=== PATIENT | female | born 1940 | race Caucasian/White ===

== ENCOUNTER 2016-07-30 12:04 | Inpatient (IN) | payer MEDICARE ==
[~2016-07-30] VITALS: Ht 157.5 cm; Wt 53.1 kg
[2016-07-30] MEDS ORDERED: PARO10TA84 PO (12:20)
[2016-07-30] MEDS ORDERED: LEVO10VL IM (12:20)
[2016-07-30] MEDS ORDERED: SYNT100T PO (13:36)
[2016-07-30 15:19] VITALS: BP 124/76
[2016-07-30] MEDS ORDERED: MOM 30ML SUSPENSION UDC PO PRN (16:15)
[2016-07-30] MEDS ORDERED: ACETAMINOPHEN TAB 650MG DOSE (2X325MG) PO PRN (16:15)
[2016-07-30] MEDS ORDERED: MAALOX 30 ML SUSP *UDC PO PRN (16:15)
[2016-07-30] MEDS ORDERED: traZODone 50 MG TAB PO PRN (16:15)
[2016-07-31] MEDS ORDERED: LEVOTHYROXINE 0.1 MG TAB (100 MCG) PO SCH (06:00)
[2016-07-31 06:30] VITALS: BP 114/67
[2016-07-31] MEDS ORDERED: buPROPion **XL** TABLET 150MG (WELLBUTRIN XL) PO SCH (09:00)
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
[2016-07-31 18:00] VITALS: BP 109/56
[2016-08-01 05:19] VITALS: BP 126/67
--- NOTE | 2016-08-01 06:16 | HPE ---
DATE OF ADMISSION: 07/30/2016 Please refer to the psychiatric history and evaluation for further details on this admission. This examination and history is intended for medical issues which may need treatment, followup or consultation on this 75-year-old female that was transferred from [facility] after having had increasing depression with feelings of hopelessness. Inpatient admission was recommended. There were no beds at [facility] and the patient was transferred here. PRIMARY CARE PROVIDER: UYEN Liang ALLERGIES: - PENICILLIN SOCIAL HISTORY: She is . She does not smoke cigarettes. She does not use recreational drugs. PAST MEDICAL HISTORY: Hypothyroidism. PAST SURGICAL HISTORY: Nose surgery. HOME MEDICATIONS: - levothyroxine 100 mcg by mouth daily - paroxetine 10 mg by mouth daily REVIEW OF SYSTEMS: Ten systems review was done. The patient had no complaints other than feeling hopeless and helpless. No medical complaints. PHYSICAL EXAMINATION: 75-year-old cooperative female in no acute distress. Height 62 inches. Weight 53.1 kg. Body mass index (BMI) 21.4. Blood pressure 124/76. Pulse 74. Respirations 16. Temperature 98.8. Oxygen saturation 98% on room air. The patient is alert and oriented times three. Pupils equal and reactive to light. Extraocular movements intact. Cornea and sclera clear. Conjunctiva normal. No facial asymmetry. Pharynx, tongue and gums pink and moist. Tongue is midline. Neck is supple, without lymphadenopathy. No thyromegaly. No goiter. Central venous pressure is below the clavicle. Carotids 2+, without bruit. Chest clear to auscultation, without wheeze or retraction. Heart is regular. Without murmur or gallop. Abdomen benign. Bowel sounds positive. Genitourinary ()/Rectal: Not done. Extremities show equal strength, full range of motion. No cyanosis, clubbing or edema. Gait steady, short stanced gait, takes small steps. She had a workup for that with a MRI in 2016 to rule out multiple sclerosis. Peripheral pulses equal and palpable bilaterally. Skin is warm and dry. IMPRESSION AND PLAN: 1. Psychiatric. Plan per psychiatry. 2. History of hypothyroidism. Will check a thyroid profile. Continue levothyroxine 100 mcg by mouth daily. 3. Electrocardiogram (EKG) ordered.
--- NOTE | 2016-08-01 08:02 | IPN ---
DATE: 08/01/2016 TIME: Around 5:00 a.m. Around 5:00 a.m. a rapid response was called from inpatient mental health unit for Mrs. Clay. I arrived to the scene and personally examined the patient and later the patient was transferred to the progressive care unit (PCU) for monitoring. Please refer to my admission history and physical for details.
--- NOTE | 2016-08-02 16:55 | ECGEPIP ---
Stationary ECG Study [facility] Test Date: 2016-08-01 Pat Name: BRANDON GALARZA Department: [facility] Room: [place] [address] Gender: F Hub Associate: : 1940 Requested By: PIERRE CONNER Order Number: [id number] Reading MD: Segun Fontana Measurements Intervals [place] Rate: 63 P: 68 IL: 144 QRS: 68 QRSD: 92 T: 41 QT: 459 QTc: 472 Interpretive Statements SINUS RHYTHM Normal ECG. No prior ECG available for comparison at the time of interpretation. Electronically Signed On 08-02-2016 16:55:16 EDT by Segun Fontana
[2016-08-10] MEDS ORDERED: LIDO1OIN2 TOP (09:53)
== END 2016-08-01 05:30 | disposition short-term general hospital (02) | DRG 885 ==
LOC: EDBD → M ED 13:33 → M ED INP 13:53 → M PSY 15:13
PROVIDERS: ADMIT Psychiatry & Neurology Psychiatry; ATTEND Psychiatry & Neurology Psychiatry
DX: F33.9 Major depressive disorder, recurrent, unspecified (principal); E03.9 Hypothyroidism, unspecified; Z91.5 Personal history of self-harm; R26.89 Other abnormalities of gait and mobility; Z88.0 Allergy status to penicillin; R55 Syncope and collapse; I95.9 Hypotension, unspecified

== ENCOUNTER 2016-08-01 05:34 | Observation (INO) | payer MEDICARE ==
[2016-08-01] VITALS (7 sets, daily range): BP systolic 98–140; BP diastolic 56–72
[~2016-08-01 05:34] MED LIST: LEVO10VL IM; PARO10TA84 PO; SYNT100T PO
[2016-08-01] MEDS ORDERED: ONDANSETRON 4MG/2ML VIAL (J2405) IV PRN (06:00)
[2016-08-01 06:38] LABS: MEAN CORPUSCULAR HEMOGLOBIN 32.8 pg (27.0-33.0); MEAN CORPUSCULAR HGB CONC 33.9 g/dl (32.0-36.5); MEAN CORPUSCULAR VOLUME 96.6 fl (80.0-96.0); RED CELL DISTRIBUTION WIDTH 12.3 % (11.5-14.5); WHITE BLOOD COUNT 8.4 K/mm3 (4.0-10.0)
[2016-08-01] MEDS ORDERED: SODIUM CHLORIDE 0.9% 1000 ML IV ONE (07:00)
[2016-08-01 07:06] LABS: ALBUMIN 3.2 GM/DL (3.2-5.2); ALBUMIN/GLOBULIN RATIO 1.39 (1.00-1.93); ALKALINE PHOSPHATASE 73 U/L (45-117); ALT/SGPT 25 U/L (12-78); ANION GAP 6 MEQ/L (8-16); AST/SGOT 19 U/L (15-37); BILIRUBIN,TOTAL 1.7 MG/DL (0.2-1.0); BLOOD UREA NITROGEN 22 MG/DL (7-18); CALCIUM LEVEL 8.2 MG/DL (8.8-10.2); CARBON DIOXIDE LEVEL 30 MEQ/L (21-32); CHLORIDE LEVEL 106 MEQ/L (98-107); GLOMERULAR FILTRATION RATE > 60.0 (>39); GLUCOSE, FASTING 120 MG/DL (83-110); POTASSIUM SERUM 3.8 MEQ/L (3.5-5.1); SODIUM LEVEL 142 MEQ/L (136-145); T UPTAKE 19 % (30-39); THYROXINE (T4) 11.9 UG/DL (4.5-12.0); TOTAL PROTEIN 5.5 GM/DL (6.4-8.2)
[2016-08-01] MEDS: NS 1,000 ML IV SCH ×2 (08:16→15:54)
[2016-08-01] MEDS: LEVOTHYROXINE 0.1 MG TAB (100 MCG) PO SCH (08:17)
[2016-08-01] MEDS: HEPARIN SOD (PORCINE) 5000 UNITS/ML VIAL SC SCH ×3 (08:17→20:30)
--- NOTE | 2016-08-01 08:34 | HPE ---
DATE OF ADMISSION: 08/01/2016 CHIEF COMPLAINT: Near syncope. HISTORY OF PRESENT ILLNESS: The patient is a 75-year-old female with a past medical history significant for anxiety, depression, bipolar and suicidal ideation. The patient was initially admitted to the inpatient mental health unit since 07/30/2016 and the patient was started on some new medications, such as Wellbutrin. Around 5:00 a.m. on 08/01/2016 the patient had a near syncope episode. The patient stood up and tried to get out of bed and the patient started feeling weak and the staff was around and she was able to catch her and she did not have a fall; however, within a few seconds the patient was noted to have stiff upper extremities and her eyes started to roll backwards. Symptoms resolved spontaneously within a few seconds and rapid response was called and the hospital team arrived to the scene to evaluate the patient. The patient complained of generalized weakness. The patient was a little bit disoriented. She is not sure what happened, but the patient denies any loss of consciousness. Denies any associated symptoms. ALLERGIES: PENICILLIN (hives). PAST MEDICAL HISTORY: 1. Anxiety/depression. 2. Bipolar. 3. History of suicidal ideation. 4. Hypothyroidism. SOCIAL HISTORY: Denies tobacco use. Denies any alcohol use. Denies any recreational drug use. REVIEW OF SYSTEMS: GENERAL: Feels generalized weakness. No fever or chills. HEENT: No vision changes. No auditory changes. CARDIOVASCULAR: Denies any chest pain, palpitations. RESPIRATORY: No cough. No sputum production. No shortness of breath. GASTROINTESTINAL: No nausea, vomiting. No abdominal pain. No diarrhea. MUSCULOSKELETAL: No muscle pain or joint pain. NEUROLOGIC: No numbness or tingling. OBJECTIVE: VITAL SIGNS: Temperature is 97.8, pulse is 62, blood pressure supine is 128/88, blood pressure sitting is 119/57, standing is 98/59. Oxygen saturation is 98% on room air. GENERAL: Pale, fatigued. No sign of acute distress. The patient shows signs of mild disorientation. She knows that she is in the hospital. She knows her name and knows her birthday. HEENT: Normocephalic, atraumatic. Extraocular muscles intact. CARDIOVASCULAR: Positive systolic murmur. Positive S1, S2. Regular rate. LUNGS: Clear to auscultation bilaterally. ABDOMEN: Soft, nontender, nondistended. Bowel sounds present. No rebound. No guarding. EXTREMITIES: No edema. No sign of cyanosis. NEUROLOGIC: Sensation to fine touch is grossly intact. Muscle strength 5/5. LABORATORY DATA: No new laboratories available. ASSESSMENT AND PLAN: 1. Near syncope episode. The patient will be discharged from inpatient mental health unit. The patient will be admitted to the progressive care unit (PCU) under observation status. Rapid response was called and I arrived at the assessment and decided to send the patient for cardiac telemetry monitoring for 24 hours. The patient will have an EKG and laboratories. Her new psychiatric medication will be discontinued. Psychiatrist, Dr. Liu, will be consulted to assist the patient and control the depression and suicidal ideation. The patient will be on IV hydration for her orthostatic hypotension. 2. Hypothyroidism. The patient is on Synthroid. Follow with a TSH. 3. Anxiety/depression. We will defer the psychiatric medication to psychiatrist. 4. Suicide ideation. The patient will be on one-to-one sitter. 5. Deep vein thrombosis (DVT) prophylaxis. On heparin.
[2016-08-02 04:00] VITALS: BP 145/67
[2016-08-02] MEDS: NS 1,000 ML IV SCH (05:14)
[2016-08-02] MEDS: HEPARIN SOD (PORCINE) 5000 UNITS/ML VIAL SC SCH ×2 (05:14→14:21)
[2016-08-02] MEDS: LEVOTHYROXINE 0.1 MG TAB (100 MCG) PO SCH (05:14)
[2016-08-02 05:57] LABS: MEAN CORPUSCULAR HEMOGLOBIN 32.5 pg (27.0-33.0); MEAN CORPUSCULAR HGB CONC 33.5 g/dl (32.0-36.5); MEAN CORPUSCULAR VOLUME 97.2 fl (80.0-96.0); RED CELL DISTRIBUTION WIDTH 12.5 % (11.5-14.5)
[2016-08-02 06:12] LABS: ALBUMIN 2.8 GM/DL (3.2-5.2); ALKALINE PHOSPHATASE 76 U/L (45-117); ALT/SGPT 86 U/L (12-78); ANION GAP 7 MEQ/L (8-16); AST/SGOT 90 U/L (15-37); BILIRUBIN,TOTAL 0.9 MG/DL (0.2-1.0); BLOOD UREA NITROGEN 12 MG/DL (7-18); CALCIUM LEVEL 7.9 MG/DL (8.8-10.2); CARBON DIOXIDE LEVEL 26 MEQ/L (21-32); CHLORIDE LEVEL 112 MEQ/L (98-107); CREATININE FOR GFR 0.42 MG/DL (0.55-1.02); GLOMERULAR FILTRATION RATE > 60.0 (>39); GLUCOSE, FASTING 106 MG/DL (83-110); POTASSIUM SERUM 3.5 MEQ/L (3.5-5.1); SODIUM LEVEL 145 MEQ/L (136-145); TOTAL PROTEIN 5.6 GM/DL (6.4-8.2)
[2016-08-02 07:50] VITALS: BP 150/66
--- NOTE | 2016-08-02 10:17 | DS.PDOC ---
Discharge Summary General Date of Admission Aug 01, 2016 at 05:58 Date of Discharge 08/02/16 Discharge Summary PROCEDURES PERFORMED DURING STAY: [None]. DISCHARGE DIAGNOSES: 1. Orthostatic hypotension 2. Anxiety/depression 3. Bipolar disorder 4. Hypothyroidism CHIEF COMPLAINT: Near Syncope. HOSPITAL COURSE: 75 yo female admitted to medicine service from [facility] for near syncopal episode. Patient was admitted to telemetry, no events noted on telemetry. She was found to be borderline orthostatic, and responded well to IV fluids. Workup was otherwise unremarkable. DISCHARGE MEDICATIONS: Please see below. ALLERGIES: Please see below. PHYSICAL EXAMINATION ON DISCHARGE: VITAL SIGNS: Please see below. GENERAL: NAD, sitting comfortably in chair, very excitable HEENT: NC/AT, EOMI, PERRL NECK: supple CARDIOVASCULAR EXAMINATION: +S1S2, RRR RESPIRATORY EXAMINATION: CTA B/L ABDOMINAL EXAMINATION: soft, NT, +BS EXTREMITIES: no edema NEUROLOGICAL EXAMINATION: no gross focal deficits PSYCHIATRIC EXAMINATION: AAOx3, anxious/manic LABORATORY DATA: Please see below. ACTIVITY: [As tolerated]. DIET: regular diet DISCHARGE PLAN: Further evaluation as per psychiatry, likely discharge to [facility]. DISPOSITION: Pending further evaluation by psychiatry, likely discharge to [facility]. DISCHARGE INSTRUCTIONS: 1. Further directions as per psychiatry. ITEMS TO FOLLOWUP ON ON OUTPATIENT: 1. PCP in 3-5 days on discharge from [facility]. DISCHARGE CONDITION: [Stable]. TIME SPENT ON DISCHARGE: Greater than 30 minutes. Vital Signs/I&Os Vital Signs Date Time Temp Pulse Resp B/P Pulse Ox O2 Delivery O2 Flow Rate FiO2 08/02/16 07:50 98.0 64 20 150/66 99 Room Air I&O- Last 24 Hours up to 6 AM 08/02/16 06:00 Intake Total 2040 ml Output Total 1000 ml Balance 1040 ml Laboratory Data Labs 24H Laboratory Tests 2 08/02/16 05:13: Blood Urea Nitrogen 12, Creatinine 0.42L, Sodium Level 145, Potassium Level 3.5 , Chloride Level 112H, Carbon Dioxide Level 26, Calcium Level 7.9L, Aspartate Amino Transf (AST/SGOT) 90H, Alanine Aminotransferase (ALT/SGPT) 86H, Alkaline Phosphatase 76, Total Bilirubin 0.9, Total Protein 5.6L, Albumin 2.8L, Albumin/ Globulin Ratio 1.00, Anion Gap 7L, Glomerular Filtration Rate > 60.0 CBC/BMP Laboratory Tests 08/02/16 05:13 Calcium Level 7.9 L, Aspartate Amino Transf (AST/SGOT) 90 H, Alanine Aminotransferase (ALT/SGPT) 86 H, Alkaline Phosphatase 76, Total Bilirubin 0.9, Total Protein 5.6 L, Albumin 2.8 L, Red Blood Count 3.57 L, Mean Corpuscular Volume 97.2 H, Mean Corpuscular Hemoglobin 32.5, Mean Corpuscular Hemoglobin Concent 33.5, Red Cell Distribution Width 12.5 Discharge Medications Scheduled (Paroxetine) 10 Mg Tab 10 MG PO DAILY (Reported) Levothyroxine Sodium (Synthroid) 100 Mcg Tab 100 MCG PO DAILY (Reported) Allergies Coded Allergies: Penicillins (Verified Allergy, Intermediate, hives, 07/30/16) RONALDO HAMPTON MD Aug 02, 2016 10:17
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
[2016-08-10] MEDS ORDERED: LIDO1OIN2 TOP (09:53)
== END 2016-08-02 16:47 ==
LOC: EDBD 05:58 → INTOOBSV 05:58 → M PCU 05:58
PROVIDERS: ADMIT Internal Medicine; ATTEND Internal Medicine
DX: I95.9 Hypotension, unspecified (principal); R55 Syncope and collapse; R45.851 Suicidal ideations; F31.9 Bipolar disorder, unspecified; F41.9 Anxiety disorder, unspecified; E03.9 Hypothyroidism, unspecified; Z88.0 Allergy status to penicillin
CPT/HCPCS: 36415; 80053; 84436; 84443; 84479; 85027; G0378

== ENCOUNTER 2016-08-02 17:40 | Inpatient (IN) | payer MEDICARE ==
[2016-08-02 17:40] VITALS: BP 122/70
[2016-08-02] MEDS ORDERED: MOM 30ML SUSPENSION UDC PO PRN (19:15)
[2016-08-02] MEDS ORDERED: traZODone 50 MG TAB PO PRN (19:15)
[2016-08-02] MEDS ORDERED: MAALOX 30 ML SUSP *UDC PO PRN (19:15)
[2016-08-03] MEDS: LEVOTHYROXINE 0.1 MG TAB (100 MCG) PO SCH (05:54)
[2016-08-03 06:10] VITALS: BP 140/63
--- NOTE | 2016-08-03 09:06 | HPEPDOC ---
Medical History and Physical Date of Admission Aug 02, 2016 at 17:40 History and Physical PCP: Teri QIU ATTENDING: Dr. Segun Recio HPI: 75yoF admitted to [facility] for unspecified depressive disorder, admitted to medical floor with near syncopal episode related to orthostatic hypotension -08/02/16 being medically examined today. The patient denies any dizziness, lightheadedness or recurrent presyncopal symptoms. She is out of bed and ambulating about the floor and the lounge and has eaten breakfast. Denies any fevers, chills, weakness, fatigue, HARDEN, CP, SOB, cough, palpitations, abdominal pain, N/V/D or changes in bowel or bladder habits. PMHx: Orthostatic hypotension Depression Anxiety Bipolar disorder Hypothyroidism PSHX: Nasal surgery SOCHX: Resides in: [facility] Marital Status: Tobacco use: Denies ETOH: Denies Illicit Drugs: Denies IV Drug Use: Denies Tattoos done unprofessionally: Denies ROS: As noted in HPI, otherwise 11pt ROS of systems reviewed and unremarkable. PE: GEN: 75yoF, appears stated age. Well-nourished, well developed. No acute distress. Alert and oriented x 3. Pleasant, interactive. HEENT: Normocephalic, atraumatic. Pupils are equal, round, and reactive to light. Extraocular movements are intact. No nystagmus appreciated. Sclera are nonicteric. Conjunctiva without injection. Nose midline. Nasal turbinates without bogginess. EACs both patent BL. TMs both visualized and conte with good cone of light, no bulging or erythema. No facial asymmetry. Moist mucous membranes. Dentition fair. Pharynx pink and moist, no cobblestoning. Neck supple , trachea midline. No lymphadenopathy or thyromegaly appreciated. CHEST: Regular rate and rhythm, +S1, +S2 LUNGS: Clear to auscultation bilaterally. No wheezes, rales, or rhonchi. Breathing appears symmetric and easy. Patient is speaking in full sentences. No accessory muscle use. ABD: Round, soft, non-tender, non-distended. +Bowel sounds throughout. No rebound or guarding. No costovertebral angle tenderness. EXT: Pulses 2+ bilaterally dorsalis pedis and radial. No lower extremity edema appreciated. SKIN: [place], dry, warm. Capillary refill <2sec. No rashes. NEURO: Alert and oriented x 3. Cranial nerves III-XII are intact. No focal deficits appreciated. EK08/01/16 SINUS RHYTHM Normal ECG. No prior ECG available for comparison at the time of interpretation.. A&P: 75yoF admitted to [facility] for unspecified depressive disorder 1. Psych. Plan per Psychiatry. EKG on file. 2. Hypothyroidism. Continue supplement. TSH and free T4 within normal limits. 3. Orthostatic hypotension. Resolved status post IV fluids. 4. Follow up with PCP on discharge. 5. Elevated LFT. Recheck CMP in a.m. 6. Breonna AVINA present throughout exam. Vital Signs Vital Signs Label Value Date Time Patient Temperature 98.2 degrees F 08/03/16 0610 Temperature Source Temporal 08/03/16 0610 Pulse 88 08/03/16 0610 Respiratory Rate 18 bpm 08/03/16 0610 Blood Pressure Assessment 140/63 (88) 08/03/16 0610 Item Value Date Time Sodium Level 145 MEQ/L 08/02/16 0513 Potassium Level 3.5 MEQ/L 08/02/16 0513 Chloride Level 112 MEQ/L H 08/02/16 0513 Carbon Dioxide Level 26 MEQ/L 08/02/16 0513 Anion Gap 7 MEQ/L L 08/02/16 0513 Blood Urea Nitrogen 12 MG/DL 08/02/16 0513 Creatinine 0.42 MG/DL L 08/02/16 0513 Glomerular Filtration Rate > 60.0 08/02/16 0513 Fasting Glucose 106 MG/DL 08/02/16 0513 Calcium Level 7.9 MG/DL L 08/02/16 0513 Total Bilirubin 0.9 MG/DL 08/02/16 0513 Aspartate Amino Transf (AST/SGOT) 90 U/L H 08/02/16 0513 Alanine Aminotransferase (ALT/SGPT) 86 U/L H 08/02/16 0513 Alkaline Phosphatase 76 U/L 08/02/16 0513 Total Protein 5.6 GM/DL L 08/02/16 0513 Albumin 2.8 GM/DL L 08/02/16 0513 Albumin/Globulin Ratio 1.00 08/02/16 0513 White Blood Count 8.0 K/mm3 08/02/16 0513 Red Blood Count 3.57 M/mm3 L 08/02/16 0513 Hemoglobin 11.6 g/dl L 08/02/16 0513 Hematocrit 34.7 % L 08/02/16 0513 Mean Corpuscular Volume 97.2 fl H 08/02/16 0513 Mean Corpuscular Hemoglobin 32.5 pg 08/02/16 05 Mean Corpuscular Hemoglobin Concent 33.5 g/dl 08/02/16 05 Red Cell Distribution Width 12.5 % 08/02/16512 Platelet Count 163 k/mm3 08/02/16 0513 Laboratory Data Labs 24H Item Value Date Time Thyroid Stimulating Hormone (TSH) 0.482 uIU/ML 08/01/1615 Free Thyroxine Index 2.3 % 08/01/16614 Home Medications Scheduled (Paroxetine) 10 Mg Tab 10 MG PO DAILY Levothyroxine Sodium (Synthroid) 100 Mcg Tab 100 MCG PO DAILY Allergies Coded Allergies: Penicillins (Verified Allergy, Intermediate, hives, 07/30/16) Shagufta Stuart Aug 03, 2016 09:06
[2016-08-03] MEDS: SERTRALINE HCL 25 MG TABLET PO SCH (09:55)
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
[2016-08-03 18:01] VITALS: BP 127/70
[2016-08-04] MEDS: LEVOTHYROXINE 0.1 MG TAB (100 MCG) PO SCH (05:15)
[2016-08-04 06:34] VITALS: BP 122/63
[2016-08-04] MEDS: SERTRALINE HCL 25 MG TABLET PO SCH (08:12)
[2016-08-04] MEDS ORDERED: POTASSIUM CHLORIDE 10 MEQ SR TABLET PO ONE (13:15)
--- NOTE | 2016-08-04 17:45 | IPNPDOC ---
[facility] Progress Note Progress Note DATE OF SERVICE: 08/04/16 INTERVAL HISTORY: Medication Side effects: Reports no GI side effects from her antidepressant or other side effects. Behavior: He has been friendly and amenable and much less worried and anxious. She appears to be much less attention seeking today. Group Attendance: Regularly attending groups and enjoying the process Psychiatric Symptom change: Reports that her depression has improved greatly and that her anxiety has lessened to a much more manageable degree today. She states that she had a good night sleep last night due to the start of Zoloft. VITAL SIGNS: See below. NEW TEST RESULTS: See below CURRENT MEDICATIONS: See below. MENTAL STATUS EXAMINATION: General: Well dressed with good hygiene Speech: Spontaneous and fluid Thought processes: Linear and logical Thought content: Future orientated with less perseveration on on anxiety Abstract reasoning, and computation: Intact Description of associations: Intact Description of abnormal or psychotic thoughts:Denies any suicidal or homicidal ideation. Denies any auditory or visual hallucinations. Does not appear to be responding to internal stimuli. Does not appear to be endorsing any bizarre or paranoid ideation. Judgment: Fair Insight: Fair Orientation: Alert and orientated 3 Recent and remote memory: Intact Attention span and concentration: Intact Fund of knowledge: Adequate Mood: "Okay" Affect: Somewhat anxious DIAGNOSES: 1. Unspecified depressive disorder. 2. Unspecified anxiety disorder. ASSESSMENT: Improving, getting close to discharge MANAGEMENT PLAN: Medications: Continue sertraline 25 mg daily Psychotherapy: Encourage groups Social: Meeting tomorrow with for prospect of discharge Misc: None Disposition: The patient require further inpatient time in order to address her disposition needs. TIME SPENT: 25 minutes. Vital Signs Vital Signs Date Time Temp Pulse Resp B/P Pulse Ox O2 Delivery O2 Flow Rate FiO2 08/04/16 06:34 97.2 94 16 122/63 08/02/16 17:40 100 Room Air Laboratory Data 24H Labs Laboratory Tests 2 08/04/16 06:57: Blood Urea Nitrogen 12, Creatinine 0.60, Sodium Level 141, Potassium Level 3.2L , Chloride Level 106, Carbon Dioxide Level 30, Calcium Level 8.7L, Aspartate Amino Transf (AST/SGOT) 37, Alanine Aminotransferase (ALT/SGPT) 78, Alkaline Phosphatase 97, Total Bilirubin 1.6#H, Total Protein 6.8#, Albumin 3.3, Albumin/ Globulin Ratio 0.94L, Anion Gap 5L, Glomerular Filtration Rate > 60.0 CBC/BMP Laboratory Tests 08/04/16 06:57 Calcium Level 8.7 L, Aspartate Amino Transf (AST/SGOT) 37, Alanine Aminotransferase (ALT/SGPT) 78, Alkaline Phosphatase 97, Total Bilirubin 1.6 #H , Total Protein 6.8 #, Albumin 3.3 Current Medications Current Medications Acetaminophen (Tylenol Tab) 650 mg Q6HP PRN PO HEADACHE or DISCOMFORT; Start at 19:15; Stop 09/01/16 at 19:14 Al Hydrox/Mg Hydrox/Simethicone (Mylanta) 30 ml Q4HP PRN PO HEARTBURN/ INDIGESTION; Start 08/02/16 at 19:15; Stop 09/01/16 at 19:14 Levothyroxine Sodium (Synthroid) 0.1 mg DAILY@06 PO Last administered on 05:15; Start 08/03/16 at 06:00; Stop 09/02/16 at 05:59 Magnesium Hydroxide (Milk Of Magnesia) 30 ml DAILYPRN PRN PO CONSTIPATION; Start 08/02/16 at 19:15; Stop 09/01/16 at 19:14 Sertraline HCl (Zoloft) 25 mg QAM PO Last administered on 08/04/16 08:12; Start 08/03/16 at 09:00; Stop 09/02/16 at 08:59 Trazodone HCl (Desyrel) 50 mg QHSP PRN PO INSOMNIA; Start 08/02/16 at 19:15; Stop 09/01/16 at 19:14 Allergies Coded Allergies: Penicillins (Verified Allergy, Intermediate, hives, 07/30/16) GME ATTESTATION My preceptor for this patient encounter was physically present in the building during the encounter and was fully available. As needed, all aspects of the patient interview, examination, medical decision making process, and medical care plan development were reviewed and approved by the preceptor. Preceptor is aware and concurs with the plan as stated in the body of this note and will attest to such by his/her cosignature. DAVID BRASHER DO Aug 04, 2016 17:45
[2016-08-04 18:00] VITALS: BP 132/76
[2016-08-05] MEDS ORDERED: clonazePAM 0.5 MG TAB PO PRN (00:15)
[2016-08-05] MEDS: LEVOTHYROXINE 0.1 MG TAB (100 MCG) PO SCH (05:10)
[2016-08-05 06:13] VITALS: BP 120/76
[2016-08-05] MEDS: SERTRALINE HCL 25 MG TABLET PO SCH (08:08)
[2016-08-05] MEDS: clonazePAM 0.5 MG TAB PO SCH (12:36)
--- NOTE | 2016-08-05 12:48 | IPNPDOC ---
[facility] Progress Note Progress Note DATE OF SERVICE: 08/05/16 HISTORY: 75 year old female with history of depression and anxiety who has been on Zoloft 25 mgs. PO daily and since last night on Clonazepam, 0.5 mgs. PO PRN. She has been cooperative with treatment, but it seems she is not getting the adequate dose, so, Zoloft has been increased today to 50 mgs. daily and Clonazepam to 0.5 mgs. daily. VITAL SIGNS: See below. NEW TEST RESULTS: None. CURRENT MEDICATIONS: See below. MENTAL STATUS EXAMINATION: Patient is a 75-year old female, who is cooperative, friendly, dressed casually , with good hygiene. She is able to establish good eye contact. Speech: Is normal. Language skills are fair. Thought processes including: Logical, linear, coherent. Thought content: Fair abstract reasoning, and computation: Fair Description of associations: No loosening of associations. Description of abnormal or psychotic thoughts: No psychotic thoughts present. Judgment: Fair. Insight: Fair. Orientation: Oriented 3. Recent and remote memory: Intact. Attention span and concentration: Fair when she is not extremely anxious. When her anxiety levels escalate, she has problems with attention and concentration. Language: Coherent, fluid. Her tone of voice is normal, normal volume and normal speed of speech. She has a tendency to speak faster when she is very anxious. Fund of knowledge: Fair. Mood: Anxious. Affect: Anxious. DIAGNOSES: 1. Depression. 2. And anxiety. 3. Risk for suicide. ASSESSMENT: The patient has improved on medications and with psychotherapy, however results are not the expected ones and for that reason Zoloft has been increased to 50 mg by mouth every morning and she will be receiving clonazepam 0.5 mg by mouth every morning instead of when necessary. She wants to go home to be with her , but she is not ready yet, because she is extremely anxious and her believes that she is not ready. She will remain for the weekend and will be assessed on Monday to evaluate medication response or improvement. MANAGEMENT PLAN: Will continue to be at the inpatient health unit taking her medications, assisting to groups, receiving support until her anxiety levels are decreased and until her depressive symptoms subside enough to be safe to be discharged. TIME SPENT: 15 minutes. Vital Signs Vital Signs Date Time Temp Pulse Resp B/P Pulse Ox O2 Delivery O2 Flow Rate FiO2 08/05/16 06:13 98.6 89 18 120/76 08/02/16 17:40 100 Room Air Laboratory Data 24H Labs Laboratory Tests 2 08/05/16 06:55: Anion Gap 6L, Blood Urea Nitrogen 14, Creatinine 0.51L, Sodium Level 141, Potassium Level 3.9#, Chloride Level 108H, Carbon Dioxide Level 27, Calcium Level 9.2, Glomerular Filtration Rate > 60.0 CBC/BMP Laboratory Tests 08/05/16 06:55 Calcium Level 9.2 Current Medications Current Medications Acetaminophen (Tylenol Tab) 650 mg Q6HP PRN PO HEADACHE or DISCOMFORT; Start at 19:15; Stop 09/01/16 at 19:14 Al Hydrox/Mg Hydrox/Simethicone (Mylanta) 30 ml Q4HP PRN PO HEARTBURN/ INDIGESTION; Start 08/02/16 at 19:15; Stop 09/01/16 at 19:14 Clonazepam (KlonoPIN) 0.5 mg DAILY PO ; Start 08/06/16 at 09:00; Stop 08/13/16 at 08:59; Status UNV Clonazepam (KlonoPIN) 0.5 mg QHSP PRN PO ANXIETY/INSOMNIA; Start 08/05/16 at 00: 15; Stop 08/12/16 at 00:14; Status Cancel Levothyroxine Sodium (Synthroid) 0.1 mg DAILY@06 PO Last administered on 05:10; Start 08/03/16 at 06:00; Stop 09/02/16 at 05:59 Magnesium Hydroxide (Milk Of Magnesia) 30 ml DAILYPRN PRN PO CONSTIPATION; Start 08/02/16 at 19:15; Stop 09/01/16 at 19:14 Sertraline HCl (Zoloft) 25 mg QAM PO Last administered on 08/05/16 08:08; Start 08/03/16 at 09:00; Stop 09/02/16 at 08:59 Trazodone HCl (Desyrel) 50 mg QHSP PRN PO INSOMNIA Last administered on 00:18; Start 08/02/16 at 19:15; Stop 09/01/16 at 19:14 Allergies Coded Allergies: Penicillins (Verified Allergy, Intermediate, hives, 07/30/16) DON CLARK MD Aug 05, 2016 12:44
[2016-08-05 18:00] VITALS: BP 121/67
[2016-08-06] MEDS: LEVOTHYROXINE 0.1 MG TAB (100 MCG) PO SCH (06:03)
[2016-08-06 06:41] VITALS: BP 110/53
[2016-08-06] MEDS: clonazePAM 0.5 MG TAB PO SCH (08:10)
[2016-08-06] MEDS: SERTRALINE HCL 50 MG TAB PO SCH (08:10)
[2016-08-06 18:00] VITALS: BP 110/59
--- NOTE | 2016-08-07 04:03 | IPN ---
DATE OF SERVICE: 08/06/2016 The patient states "I'm doing very well." She states "my doctor changed my medicine last night and today I'm feeling better, my anxiety is better. I hope I'm being discharged soon." She proceeded to show me a card that she had made in activity and read to me some things that she said she had written down, which sounded like positive things that she felt she had learned so far in the groups. She basically had no complaints. MENTAL STATUS EXAMINATION: This patient was alert and oriented times three. Eye contact fairly good. She was not psychotic, suicidal, homicidal. Concentration is fairly good. She is verbally spontaneous. There was no formal thought disorder noted. She said that her mood was good and her affect was full range and appropriate. Memory is intact. Insight and judgment fair. DIAGNOSIS: Unspecified depressive disorder. TREATMENT PLAN: At this point, the patient is telling me that she is feeling much better; however, even yesterday her Zoloft was increased because she was still very anxious. We will therefore continue to monitor the patient for continued stabilization of her mood. MANUEL
[2016-08-07] MEDS: LEVOTHYROXINE 0.1 MG TAB (100 MCG) PO SCH (06:19)
[2016-08-07 06:27] VITALS: BP 121/63
[2016-08-07] MEDS: SERTRALINE HCL 50 MG TAB PO SCH (08:32)
[2016-08-07] MEDS: clonazePAM 0.5 MG TAB PO SCH (08:32)
[2016-08-07 18:00] VITALS: BP 116/60
[2016-08-08] MEDS: ACETAMINOPHEN TAB 650MG DOSE (2X325MG) PO PRN ×2 (01:18→08:25)
[2016-08-08 01:25] VITALS: BP 101/54
--- NOTE | 2016-08-08 04:10 | REPUSA ---
CLINICAL HISTORY: Pain. COMMENTS: degenerative changes are present at both hip joints as demonstrated joint space narrowing, endpla te sclerosis and osteophytosis. There is no evidence for fracture or dislocation. No evidence for lyt ic or blastic lesions. There is no radiographic evidence for avascular necrosis. There are no obvious soft tissue abnormalities. IMPRESSION: 1. No fracture or dislocation. 2. Degenerative changes as above.
--- NOTE | 2016-08-08 04:20 | REPUSA ---
CLINICAL HISTORY: Back pain. COMMENTS: Mild osteopenia of the visualized bones. Mild degenerative levoscoliosis apex at L3. Grade 1 anteroli sthesis of L5 on S1. Moderate compression fracture of L1 vertebral body. No associated retropulsion o r secondary canal stenosis. Mild increase in the degree of kyphosis at the thoracolumbar junction. Mo derate large bowel fecal stasis. IMPRESSION: Levoscoliosis apex at L3. Grade one anterolisthesis of L5 on S1. L1 compression fracture of indeterminate age. No associated retropulsion or secondary canal stenosis. Thank you for your kind referral of this patient.
[2016-08-08] MEDS: LEVOTHYROXINE 0.1 MG TAB (100 MCG) PO SCH (05:48)
[2016-08-08 06:52] VITALS: BP 101/54
[2016-08-08] MEDS: SERTRALINE HCL 50 MG TAB PO SCH (08:25)
[2016-08-08] MEDS: clonazePAM 0.5 MG TAB PO SCH (08:25)
--- NOTE | 2016-08-08 11:25 | IPNPDOC ---
Subjective Date Seen The patient was seen on 08/08/16. Subjective Chief Complaint/HPI The patient is a 75-year-old female admitted with a reason for visit of Unspecified Depressive D/O. Events since last encounter Requested to evaluate the patient related to a fall. She states she was getting out of bed during the night to go to the bathroom. She states she was rushing because she had to urinate. She does not recall exactly what happened however she believes she slipped and fell at the bedside. According to the nurses know at 01:41 the patient was found at the bedside incontinent with also urine on the floor. She complained of 10/10 back pain. This morning she is still in bed and reports low back pain. She states it is radiating to the muscles of the low back bilaterally. She denies any radiation of pain down her legs. She denies weakness, numbness, or tingling in lower extremities. She denies loss of bowel or bladder control. She denies hitting her head. No loss of consciousness. She denies neck pain, weakness, numbness, or tingling in upper extremities. She denies unsteadiness on her feet. She states sometimes she has low back pain at home and she uses ibuprofen. ENT: Denies: Dysphagia, Ear Pain, Head Aches Pulmonary: Denies: Cough, Dyspnea Cardiovascular: Denies: Chest Pain, Lt Headedness, Orthopnea, Palpitations, Paroxysmal Noc. Dyspnea Genitourinary: Denies: Dysuria, Frequency, Incontinence, Retention Objective Physical Examination General Exam: Positive: Alert Eye Exam: Positive: PERRLA ENT Exam: Positive: Atraumatic Neck Exam: Positive: Supple, Negative: JVD, thyromegaly Heart Exam: Positive: Normal S1, Normal S2, Rate Normal, Regular Rhythm, Negative: Murmurs, Rubs Abdomen Exam: Positive: Normal bowel sounds, Soft, Negative: Hepatospenomegaly, Tenderness Skin Exam: Positive: Nl turgor and temperature Neuro Exam: Positive: Normal Speech, Other (she has tenderness with palpation over the lumbar area and paraspinal muscles bilaterally. Straight leg raise test was positive on the left. She states she has been out of bed this morning and ambulating on the unit.), Reflexes 2+, Sensation Intact, Strength at 5/5 X4 ext Assessment /Plan Problems (1) Status post fall Status: Acute (2) Low back pain Status: Acute Problem Text: * Continue Tylenol as needed * Apply Lidoderm patch to low back * X-ray of lumbosacral spine indicates levoscoliosis, grade 1 anterolisthesis L5 -S1, L1 compression fracture of indeterminate age.Will also check CT scan of lumbosacral spine as the patient is continuing to report low back pain. * Pelvis x-ray negative. * Check orthostatic vital signs * update CBC/CMP. * Physical therapy evaluation. * Fall precautions. (3) Hypothyroid Status: Chronic Problem Text: * Continue supplement Plan/VTE VTE Prophylaxis Ordered?: No (ambulatory) VS, I&O, 24H, Fishbone Vital Signs/I&O Vital Signs Date Time Temp Pulse Resp B/P Pulse Ox O2 Delivery O2 Flow Rate FiO2 08/08/16 06:52 98.3 55 18 101/54 08/07/16 06:27 Room Air 08/06/16 18:00 100 Shagufta Stuart Aug 08, 2016 11:24
[2016-08-08] MEDS: LIDOCAINE 5% (LIDODERM) PATCH TD SCH (11:56)
[2016-08-08] MEDS: IBUPROFEN 600 MG TAB PO PRN ×2 (11:56→18:08)
[2016-08-08 13:30] VITALS: BP_SYST 121; BP_SYST 157; BP_SYST 162; BP_DIAS 63; BP_DIAS 71; BP_DIAS 79
--- NOTE | 2016-08-08 13:40 | REP ---
CT STUDY OF THE LUMBAR SPINE WITHOUT CONTRAST: HISTORY: Pain after a fall. Comparison radiographs from this date demonstrate L1 compression fracture deformity. CT TECHNIQUE: Helical scanning is acquired and 4 mm axial images are reformatted and viewed at bone and soft-tissue window settings. Coronal and sagittal multiplanar re-formation images are generated and reviewed as well. CT FINDINGS: The study confirms the presence of a wedge compression fracture deformity at the L1 vertebral body with 50% loss of anterior vertebral body heights. There is 4 mm retropulsion of the superior cortex of the posterior aspect of the L1 vertebral body producing mild central canal stenosis. The fracture appears to involve the junction of the vertebral body with the pedicle on the left side. Otherwise, there is no evidence of posterior element involvement. The fracture appears to be acute on CT images. There is mild gibbous deformity as a result of the wedging. Facets are normally aligned. Spinous processes are intact. There are small hypoplastic ribs bilaterally at L1. No other lumbar spine element fracture is seen. There is osteoarthritic facet disease bilaterally at L5-S1 and L4-5. Some degenerative disc changes are seen and L5-S1 and there is a degenerative grade 1 7 mm L5-S1 listhesis. No spondylolysis is seen. IMPRESSION: Acute wedge compression fracture deformity at L1 with 4 mm of retropulsion and mild central canal stenosis. 50% loss of vertebral body height with mild gibbous deformity. No other traumatic abnormality noted. Degenerative disc changes at L5-S1 with 7 mm degenerative grade 1 L5-S1 spondylolisthesis. 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 Signed by Papo Navas MD 08/08/2016 03:59 P
--- NOTE | 2016-08-08 16:53 | IPNPDOC ---
[facility] Progress Note Progress Note DATE OF SERVICE: 08/08/16 INTERVAL HISTORY: Medication Side effects: The patient reports no side effects from her sertraline. She had had a fall earlier in the morning but was unsure she is feeling dizzy or not. She reports no side effects from the clonazepam or Zoloft at this time. Behavior: Amenable and friendly Group Attendance: Has been attending groups relatively frequently Psychiatric Symptom change: Reports that her anxiety and depression are under much her control and that she is feeling ready for discharge. VITAL SIGNS: See below. NEW TEST RESULTS: See below CURRENT MEDICATIONS: See below. MENTAL STATUS EXAMINATION: General: Well dressed with good hygiene Speech: Spontaneous and fluid Thought processes: Linear and logical Thought content: Future orientated Abstract reasoning, and computation: Intact Description of associations: Intact Description of abnormal or psychotic thoughts:Denies any suicidal or homicidal ideation. Denies any auditory or visual hallucinations. Does not appear to be responding to internal stimuli. Does not appear to be endorsing any bizarre or paranoid ideation. Judgment: Fair Insight: Fair Orientation: Alert and orientated 3 Recent and remote memory: Intact Attention span and concentration: Intact Fund of knowledge: Adequate Mood: "Okay" Affect: Euthymic with a full range DIAGNOSES: 1. Unspecified depressive disorder. 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 3. Unspecified anxiety disorder. ASSESSMENT: Improving nearing psychiatric stability MANAGEMENT PLAN: Medications: Continue Zoloft as is below will DC clonazepam out of abundance of caution due to concerns of falls. Psychotherapy: Encourage group attendance Social: Will have meet for a family meeting prior to discharge anticipated tomorrow Misc: Medical workup reveals old compression fracture and there doesn't appear to be acutely. However, she will have PT evaluation to ensure that if she needs extra services these could be provided discharge. Disposition: The patient will need of further inpatient stay to address disposition and safety planning needs. TIME SPENT: 15 minutes. Vital Signs Vital Signs Date Time Temp Pulse Resp B/P Pulse Ox O2 Delivery O2 Flow Rate FiO2 08/08/16 13:30 121/63 08/08/16 06:52 98.3 55 18 08/07/16 06:27 Room Air 08/06/16 18:00 100 Laboratory Data 24H Labs Laboratory Tests 2 08/08/16 13:06: Blood Urea Nitrogen 14, Creatinine 0.56, Sodium Level 143, Potassium Level 4.0, Chloride Level 105, Carbon Dioxide Level 29, Calcium Level 9.2, Aspartate Amino Transf (AST/SGOT) 25, Alanine Aminotransferase (ALT/SGPT) 58, Alkaline Phosphatase 103, Total Bilirubin 1.3H, Total Protein 6.3L, Albumin 3.4, Albumin/ Globulin Ratio 1.17, Anion Gap 9, Glomerular Filtration Rate > 60.0 CBC/BMP Laboratory Tests 08/08/16 13:06 Calcium Level 9.2, Aspartate Amino Transf (AST/SGOT) 25, Alanine Aminotransferase (ALT/SGPT) 58, Alkaline Phosphatase 103, Total Bilirubin 1.3 H , Total Protein 6.3 L, Albumin 3.4, Red Blood Count 4.04, Mean Corpuscular Volume 95.0, Mean Corpuscular Hemoglobin 32.3, Mean Corpuscular Hemoglobin Concent 34.0, Red Cell Distribution Width 12.4 Current Medications Current Medications Acetaminophen (Tylenol Tab) 650 mg Q6HP PRN PO HEADACHE or DISCOMFORT Last administered on 08/08/16 08:25; Start 08/02/16 at 19:15; Stop 08/08/16 at 10:16 ; Status DC Al Hydrox/Mg Hydrox/Simethicone (Mylanta) 30 ml Q4HP PRN PO HEARTBURN/ INDIGESTION; Start 08/02/16 at 19:15; Stop 09/01/16 at 19:14 Clonazepam (KlonoPIN) 0.5 mg DAILY PO Last administered on 08/08/16 08:25; Start 08/05/16 at 09:00; Stop 08/08/16 at 14:32; Status DC Clonazepam (KlonoPIN) 0.5 mg QHSP PRN PO ANXIETY/INSOMNIA; Start 08/05/16 at 00: 15; Stop 08/12/16 at 00:14; Status Cancel Ibuprofen (Advil) 600 mg Q8HP PRN PO PAIN Last administered on 08/08/16 11:56 ; Start 08/08/16 at 10:15; Stop 09/07/16 at 10:14 Levothyroxine Sodium (Synthroid) 0.1 mg DAILY@06 PO Last administered on 05:48; Start 08/03/16 at 06:00; Stop 09/02/16 at 05:59 Lidocaine (Lidoderm Patch) 1 patch DAILY TD Last administered on 08/08/16 11: 56; Start 08/08/16 at 09:00; Stop 09/07/16 at 08:59 Magnesium Hydroxide (Milk Of Magnesia) 30 ml DAILYPRN PRN PO CONSTIPATION; Start 08/02/16 at 19:15; Stop 09/01/16 at 19:14 Non-Formulary Medication ( See Comment Field Below ) REMOVE LIDODERM PATCH DAILY@21 XX ; Start 08/08/16 at 21:00; Stop 09/07/16 at 20:59 Sertraline HCl (Zoloft) 25 mg QAM PO Last administered on 08/05/16 08:08; Start 08/03/16 at 09:00; Stop 08/05/16 at 12:27; Status DC Sertraline HCl (Zoloft) 50 mg QAM PO Last administered on 08/08/16 08:25; Start 08/06/16 at 09:00; Stop 09/05/16 at 08:59 Trazodone HCl (Desyrel) 50 mg QHSP PRN PO INSOMNIA Last administered on 00:18; Start 08/02/16 at 19:15; Stop 09/01/16 at 19:14 Allergies Coded Allergies: Penicillins (Verified Allergy, Intermediate, hives, 07/30/16) GME ATTESTATION My preceptor for this patient encounter was physically present in the building during the encounter and was fully available. As needed, all aspects of the patient interview, examination, medical decision making process, and medical care plan development were reviewed and approved by the preceptor. Preceptor is aware and concurs with the plan as stated in the body of this note and will attest to such by his/her cosignature. DAVID BRASHER DO Aug 08, 2016 16:53
[2016-08-08 18:00] VITALS: BP 118/61
[2016-08-08] MEDS ORDERED: **NOTE PATIENT COMMENT** MISC XX SCH (21:00)
[2016-08-09] MEDS: IBUPROFEN 600 MG TAB PO PRN ×2 (02:08→10:35)
[2016-08-09] MEDS: LEVOTHYROXINE 0.1 MG TAB (100 MCG) PO SCH (05:59)
[2016-08-09 06:19] VITALS: BP 107/60
[2016-08-09] MEDS: LIDOCAINE 5% (LIDODERM) PATCH TD SCH (08:19)
[2016-08-09] MEDS: SERTRALINE HCL 50 MG TAB PO SCH (08:19)
--- NOTE | 2016-08-09 10:21 | IPNPDOC ---
Subjective Date Seen The patient was seen on 08/09/16. Subjective Chief Complaint/HPI The patient is a 75-year-old female admitted with a reason for visit of Unspecified Depressive D/O. Events since last encounter Re-evaluating patient is post fall 08/08/16 The patient is currently sitting on the side of her bed and dressing herself. She is having some pain in her low back however ibuprofen and Lidoderm patch is helping with her pain. According to nursing she has been up out of bed and was ambulating about the unit last evening. Applying heat to her low back is also helpful. She has not had any recurrent falls. PT evaluation is pending. Pulmonary: Denies: Cough, Dyspnea Cardiovascular: Denies: Chest Pain, Lt Headedness, Orthopnea, Palpitations, Paroxysmal Noc. Dyspnea Objective Physical Examination General Exam: Positive: Alert Eye Exam: Positive: PERRLA ENT Exam: Positive: Atraumatic Neck Exam: Positive: Supple, Negative: JVD, thyromegaly Heart Exam: Positive: Normal S1, Normal S2, Rate Normal, Regular Rhythm, Negative: Murmurs, Rubs Abdomen Exam: Positive: Normal bowel sounds, Soft, Negative: Hepatospenomegaly, Tenderness Skin Exam: Positive: Nl turgor and temperature Neuro Exam: Positive: Normal Speech, Reflexes 2+, Sensation Intact, Strength at 5/5 X4 ext Assessment /Plan Problems (1) Status post fall Status: Acute (2) Low back pain Status: Acute Problem Text: * Continue Tylenol as needed * Apply Lidoderm patch to low back * X-ray of lumbosacral spine indicates levoscoliosis, grade 1 anterolisthesis L5 -S1, L1 compression fracture of indeterminate age. * CT scan of lumbosacral spine indicates acute compression fracture. Orthopedic opinion is requested. * Pelvis x-ray negative. * Check orthostatic vital signs * CBC/CMP 08/08/16. * Physical therapy evaluation pending. * Fall precautions. (3) Hypothyroid Status: Chronic Problem Text: * Continue supplement Plan/VTE VTE Prophylaxis Ordered?: No (ambulatory) VS, I&O, 24H, Fishbone Vital Signs/I&O Vital Signs Date Time Temp Pulse Resp B/P Pulse Ox O2 Delivery O2 Flow Rate FiO2 08/09/16 06:19 98.4 82 16 107/60 08/07/16 06:27 Room Air 08/06/16 18:00 100 Laboratory Data 24H LABS Laboratory Tests 2 08/08/16 13:06: Blood Urea Nitrogen 14, Creatinine 0.56, Sodium Level 143, Potassium Level 4.0, Chloride Level 105, Carbon Dioxide Level 29, Calcium Level 9.2, Aspartate Amino Transf (AST/SGOT) 25, Alanine Aminotransferase (ALT/SGPT) 58, Alkaline Phosphatase 103, Total Bilirubin 1.3H, Total Protein 6.3L, Albumin 3.4, Albumin/ Globulin Ratio 1.17, Anion Gap 9, Glomerular Filtration Rate > 60.0 CBC/BMP Laboratory Tests 08/08/16 13:06 Calcium Level 9.2, Aspartate Amino Transf (AST/SGOT) 25, Alanine Aminotransferase (ALT/SGPT) 58, Alkaline Phosphatase 103, Total Bilirubin 1.3 H , Total Protein 6.3 L, Albumin 3.4, Red Blood Count 4.04, Mean Corpuscular Volume 95.0, Mean Corpuscular Hemoglobin 32.3, Mean Corpuscular Hemoglobin Concent 34.0, Red Cell Distribution Width 12.4 Shagufta Stuart Aug 09, 2016 10:21
[2016-08-09 10:49] VITALS: BP 131/70
[2016-08-09 10:50] VITALS: BP 112/60
[2016-08-09 10:51] VITALS: BP 96/58
[2016-08-09] MEDS ORDERED: SERT50TA PO (15:19)
[2016-08-09] MEDS ORDERED: LIDO5TD TD (15:34)
[2016-08-09] MEDS ORDERED: ADVI200T PO (15:43)
--- NOTE | 2016-08-09 16:23 | DS.PDOC ---
[facility] Discharge Summary Discharge Summary DATE OF ADMISSION: Aug 02, 2016 at 17:40 DATE OF DISCHARGE: 08/10/2015 DISCHARGE DIAGNOSES: 1. Unspecified depression. 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 3. Unspecified anxiety. REASON FOR ADMISSION: The patient was admitted from the medical floor after being subsequent he sent there due to her reported fall just after her admission to psychiatry. She initially was mid to psychiatry due to concerns that she was suicidal and increasingly depressed after failure of her Paxil to effectively control her depressive symptoms. CONSULTANTS INVOLVED: Orthopedics and physical therapy TREATMENT AND PROGRESS ON THE UNIT : Legal status on admission: 9.13 Medication Management: The patient was discontinued on her home Paxil as this had been ineffective. She was started on Zoloft 25 mg and subsequent titrated to 50 mg. She was briefly tried on 0.25 mg of clonazepam that was effective for her anxiety but due to a reported fall several days before discharge this was discontinued out of an abundance of caution. The patient did not report any dizziness prior to her fall or the clonazepam was proximal to the event, however due to her advanced age this was considered imprudent to continue. Psychotherapy: Attended groups frequently Behavior: Friendly and amenable Discharge planning: The patient was slated for discharge several days prior to her original discharge due to her fall several days before her actual discharge she required a PT evaluation along with orthopedics, whom recommended she continue using her home walker and orthopedics recommended a back brace. However , her insurance would not pay for the back brace but the patient stated she did have something analogous and would follow closely with her outpatient provider. Due to her multiple suicide attempts she was given seven-day supply of her sertraline with 4 refills as well as lidocaine patches for pain. Outpatient recommendations: Pending studies on discharge: DISCHARGE ASSESSMENT: 75-year-old woman with a history long history of depression and anxiety whom appears to manifest dependent/avoidant personality traits. She has a history of attempting suicide when from loved ones in illness or . She improved well with a switch to sertraline. MENTAL STATUS EXAMINATION ON DISCHARGE: General: Well dressed with good hygiene Speech: Spontaneous and fluid Thought processes: Linear and logical Thought content: Future orientated focused on engaging in society after discharge Abstract reasoning, and computation: Intact Description of associations: Intact Description of abnormal or psychotic thoughts:Denies any suicidal or homicidal ideation. Denies any auditory or visual hallucinations. Does not appear to be responding to internal stimuli. Does not appear to be endorsing any bizarre or paranoid ideation. Judgment: Fair Insight: Fair Orientation: Alert and orientated 3 Recent and remote memory: Intact Attention span and concentration: Intact Fund of knowledge: Adequate Mood: "Fine except my back hurts a bit" Affect: Euthymic with a full range PLAN/FOLLOWUP ARRANGEMENTS: The patient was slated to follow up with her outpatient medical provider within several days of her discharge. She was initially referred to her outpatient providers for further psychiatric and psychotherapeutic management.. The social work team worked during the predischarge meeting in order to evaluate for further issues of lethality address them fully before discharge. They worked on safety planning with the patient's family members in order to ensure that the patient will have a safe and effective discharge. The amount of time spent in the coordination of care for this patient was approximately 50 minutes. Vital Signs/I&Os Vital Signs Date Time Temp Pulse Resp B/P Pulse Ox O2 Delivery O2 Flow Rate FiO2 08/09/16 10:51 82 96/58 08/09/16 06:19 98.4 16 08/07/16 06:27 Room Air 08/06/16 18:00 100 Medications Scheduled Levothyroxine Sodium (Synthroid) 100 Mcg Tab 100 MCG PO DAILY hypothyroidism ( Reported) Lidocaine (Lidocaine) 5 % Pad #30 1 PATCH TD DAILY pain Sertraline Hcl (Sertraline HCl) 50 Mg Tab #7 50 MG PO QAM MOOD Scheduled PRN Ibuprofen (Advil) 200 Mg Tab 600 MG PO Q8HP PRN PRN PAIN (Reported) Allergies Coded Allergies: Penicillins (Verified Allergy, Intermediate, hives, 07/30/16) GME ATTESTATION My preceptor for this patient encounter was physically present in the building during the encounter and was fully available. As needed, all aspects of the patient interview, examination, medical decision making process, and medical care plan development were reviewed and approved by the preceptor. Preceptor is aware and concurs with the plan as stated in the body of this note and will attest to such by his/her cosignature. DAVID BRASHER DO Aug 09, 2016 16:23
--- NOTE | 2016-08-10 09:03 | IPNPDOC ---
Subjective Date Seen The patient was seen on 08/10/16. Subjective Chief Complaint/HPI The patient is a 75-year-old female admitted with a reason for visit of Unspecified Depressive D/O. Objective Physical Examination General Exam: Positive: Alert Eye Exam: Positive: PERRLA ENT Exam: Positive: Atraumatic Neck Exam: Positive: Supple, Negative: JVD, thyromegaly Heart Exam: Positive: Normal S1, Normal S2, Rate Normal, Regular Rhythm, Negative: Murmurs, Rubs Abdomen Exam: Positive: Normal bowel sounds, Soft, Negative: Hepatospenomegaly, Tenderness Skin Exam: Positive: Nl turgor and temperature Neuro Exam: Positive: Normal Speech, Reflexes 2+, Sensation Intact, Strength at 5/5 X4 ext Assessment /Plan Problems (1) Compression fracture Status: Acute Problem Text: * Patient was evaluated late 08/09 by orthopedics * Was recommended to have a back brace. * This was apparently not covered by her insurance and she was subsequently discharged as per psychiatry. * I have called the patient this morning at home to discuss this and recommendations as per orthopedics. The patient and her verbalize understanding. [facility] 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 The patient has a prescription for this. If this is not covered by her insurance, I have spoken with Brandie Sanchez regarding coverage. I have strongly reinforced that she quill picking machine operator her brace today. I have discussed potential complications and implications of not wearing her brace. * I have also called [facility] regarding follow-up appointment. As long as she picks up her brace today they will see her tomorrow morning at 8:[address] Sanchez. This is also related to the patient. She verbalizes understanding. I have strongly reinforced that she keep this appointment. * The patient is to be arranged with a follow-up appointment with her PCP in the next 1-2 days as well. (2) Status post fall Status: Acute (3) Low back pain Status: Acute Problem Text: * Continue Tylenol as needed * Apply Lidoderm patch to low back * X-ray of lumbosacral spine indicates levoscoliosis, grade 1 anterolisthesis L5 -S1, L1 compression fracture of indeterminate age. * CT scan of lumbosacral spine indicates acute compression fracture. Orthopedic opinion is requested. * Pelvis x-ray negative. * Check orthostatic vital signs * CBC/CMP 08/08/16. * Physical therapy evaluation pending. * Fall precautions. (4) Hypothyroid Status: Chronic Problem Text: * Continue supplement Plan/VTE VTE Prophylaxis Ordered?: No (ambulatory) VS, I&O, 24H, Fishbone Vital Signs/I&O Vital Signs Date Time Temp Pulse Resp B/P Pulse Ox O2 Delivery O2 Flow Rate FiO2 08/09/16 10:51 82 96/58 08/09/16 06:19 98.4 16 08/07/16 06:27 Room Air 08/06/16 18:00 100 Shagufta Stuart Aug 10, 2016 09:03
[2016-08-10] MEDS ORDERED: LIDO1OIN2 TOP (09:53)
== END 2016-08-09 16:30 | disposition home or self-care (01) | DRG 881 ==
LOC: M PSY 17:40
PROVIDERS: ADMIT Psychiatry & Neurology Psychiatry; ATTEND Psychiatry & Neurology Psychiatry
DX: F32.9 Major depressive disorder, single episode, unspecified (principal); F41.9 Anxiety disorder, unspecified; F60.7 Dependent personality disorder; Z88.0 Allergy status to penicillin; Z79.899 Other long term (current) drug therapy; E03.9 Hypothyroidism, unspecified; I95.1 Orthostatic hypotension; M54.5 Low back pain